=== PATIENT | female | born 1940 | race Caucasian/White ===

== ENCOUNTER 2016-11-03 21:54 | Emergency (ER) | payer OTHER ==
[~2016-11-03] VITALS: Ht 162.6 cm; Wt 77.1 kg
[~2016-11-03 21:54] MED LIST: ASPI81CH43 PO; CALC600T37 PO; CITA10TA59 PO; DIGO0.1262 PO; FURO20TA PO; LEVO100T81 PO; LISI-275 PO; LORA-655 PO; METO50TA7 PO; MULTTAB PO; OMEG100078 PO; OMEP20TA12 PO; POTA10TA75 PO; ROSU40TA PO; SPIR25TA89 PO; TEMA15CA; TEMA15CA91 PO; [UNRECOGNIZED DRUG - CODE] PO
[2016-11-03] MEDS ORDERED: cloNIDine HCL 0.1 MG TAB PO ONE (22:15)
[2016-11-03 22:38] LABS: Basophils # (auto) 0 uL; Basophils % (auto) 0.4 % (0.0-2.0); DEFINITIVE VIEW TRANSMISSION; Eosinophils # (auto) 0.2 uL; Eosinophils % (auto) 4.1 % (0.0-7.0); Hematocrit 38.5 % (36.0-46.0); Hemoglobin 11.9 g/dL (12.2-16.2); Lymphocytes # (auto) 1.6 uL; Lymphocytes % (auto) 27.6 % (10.0-50.0); Mean Corpuscular Hemoglobin 25.7 pg (28.0-32.0); Mean Corpuscular Hgb Conc. 30.9 g/dL (32.0-36.0); Mean Corpuscular Volume 83.2 fL (80.0-100.0); Mean Platelet Volume 8.1 fL (7.4-10.4); Monocytes # (auto) 0.5 uL; Monocytes % (auto) 8.4 % (0.0-12.0); Neutrophils # (auto) 3.5 uL; Neutrophils % (auto) 59.5 % (37.0-80.0); Platelet Count (auto) 277 10^3/uL (140-450); Red Cell Distribution Width 16.3 % (11.6-16.0); White Blood Cell 5.8 10^3/uL (4.4-10.8)
[2016-11-03 23:00] LABS: Albumin 3.7 g/dL (3.4-5.0); BUN/Creatinine Ratio 18.6; Bilirubin, Total 0.6 mg/dL (0.2-1.0); Calcium 8.4 mg/dL (8.5-10.1); Potassium 3.4 mmol/L (3.5-5.1)
[2016-11-04] MEDS ORDERED: HYDROcodone-ACET 5/325MG TAB PO ONE (02:00)
[2016-11-04] MEDS ORDERED: ONDANSETRON HCL 4 MG/2 ML VIAL IV ONE (02:45)
[2016-11-04] MEDS ORDERED: MORPHINE SULF INJ 2 MG/ML SYRINGE 1ML IV ONE (02:45)
[2016-11-04] MEDS ORDERED: cefTRIAXone 1GM/50ML D5W 50 ML IV ONE (02:45)
[2016-11-04 06:01] VITALS: BP 150/72
== END 2016-11-04 07:13 | disposition home or self-care (01) ==
LOC: EDBD 21:54 → ER 21:57
DX: K11.21 Acute sialoadenitis (principal); I48.91 Unspecified atrial fibrillation; I25.810 Atherosclerosis of coronary artery bypass graft(s) without angina pectoris; Z95.1 Presence of aortocoronary bypass graft; I11.0 Hypertensive heart disease with heart failure; I50.9 Heart failure, unspecified; K21.9 Gastro-esophageal reflux disease without esophagitis; E78.5 Hyperlipidemia, unspecified; I25.2 Old myocardial infarction; Z88.6 Allergy status to analgesic agent; Z88.8 Allergy status to other drugs, medicaments and biological substances; Z79.82 Long term (current) use of aspirin; Z79.899 Other long term (current) drug therapy; Z90.49 Acquired absence of other specified parts of digestive tract; Z95.0 Presence of cardiac pacemaker; Z98.890 Other specified postprocedural states
CPT/HCPCS: 36415; 70490; 80053; 85025; 96365; 96375; 99285; J0696; J2270; J2405

== ENCOUNTER 2017-09-09 12:55 | Emergency (ER) | payer OTHER ==
[~2017-09-09] VITALS: Ht 172.7 cm; Wt 81.6 kg
[~2017-09-09 12:55] MED LIST changes: +AMIO100T3 PO; +CAR125T PO; -CITA10TA59 PO; -DIGO0.1262 PO; +ESCI20TA51 PO; -LISI-275 PO; -LORA-655 PO; -METO50TA7 PO; -OMEP20TA12 PO; +QUET100T46 PO; -SPIR25TA89 PO; +SULF-240 XX; +SULFPOW PO; -TEMA15CA; -TEMA15CA91 PO
[2017-09-09] MEDS ORDERED: SODIUM BICARBONATE 8.4% INJ 50ML SYRINGE ONE (13:00)
[2017-09-09] MEDS ORDERED: EPINEPHrine HCL 1 MG/10 ML SYRG ONE (13:02)
[2017-09-09 13:03] VITALS: BP 105/45
== END 2017-09-09 14:04 | disposition expired ==
LOC: ER 12:55 → EDBD 12:55 → ER 14:04
DX: I46.9 Cardiac arrest, cause unspecified (principal); M10.9 Gout, unspecified; I13.0 Hypertensive heart and chronic kidney disease with heart failure and stage 1 through stage 4 chronic kidney disease, or unspecified chronic kidney disease; N18.3 Chronic kidney disease, stage 3 (moderate); K21.9 Gastro-esophageal reflux disease without esophagitis; F32.9 Major depressive disorder, single episode, unspecified; I25.10 Atherosclerotic heart disease of native coronary artery without angina pectoris; I48.91 Unspecified atrial fibrillation; E78.5 Hyperlipidemia, unspecified; I25.2 Old myocardial infarction; Z95.1 Presence of aortocoronary bypass graft; Z95.0 Presence of cardiac pacemaker; Z79.82 Long term (current) use of aspirin; Z88.6 Allergy status to analgesic agent; Z88.8 Allergy status to other drugs, medicaments and biological substances
CPT/HCPCS: 92950; 99291; J0171